=== PATIENT | male | born 1975 | race Caucasian/White ===

== ENCOUNTER 2018-03-25 21:07 | Emergency (ER) | payer OTHER ==
--- NOTE | 2018-03-25 21:54 | EDPHY ---
H & P Stated Complaint: TOOTHPICK STUCK IN THROAT/FROM [facility] [place] Time Seen by Provider: 03/25/18 21:54 HPI/ROS: HPI CHIEF COMPLAINT: Swallowed a toothpick. HISTORY OF PRESENT ILLNESS: This patient is a 42-year-old male, history of hypertension and thyroid disease, he presents emergency room after states he was drinking a bloody Maryam this evening the all of fell off the toothpick and then he swallowed a toothpick by accident. He states he can still feel it in his upper esophagus in the back of his throat. He is able to handle his secretions and swallow. He has some mild discomfort. He denies any wheezing or coughing. Past Medical History: Hypertension and thyroid disease Past Surgical History: No recent surgical history had ankle surgery years ago. Social History: Denies daily use drugs alcohol tobacco. Had alcohol this evening socially. Family History: Noncontributory ROS REVIEW OF SYSTEMS: A comprehensive 10 point review of systems is otherwise negative aside from elements mentioned in the history of present illness. Exam Constitutional appears well nontoxic no acute distress triage nursing summary reviewed, vital signs reviewed, awake/alert. Eyes normal conjunctivae and sclera, EOMI, PERRLA. HENT posterior pharynx unable to visualize, normal inspection, atraumatic, moist mucus membranes, no epistaxis, neck supple/ no meningismus, no raccoon eyes. Respiratory clear to auscultation bilaterally, normal breath sounds, no respiratory distress, no wheezing. Cardiovascular rate normal, regular rhythm, no murmur, no edema, distal pulses normal. Gastrointestinal soft, non-tender, no rebound, no guarding, normal bowel sounds, no distension, no pulsatile mass. Genitourinary no CVA tenderness. Musculoskeletal no midline vertebral tenderness, full range of motion, no calf swelling, no tenderness of extremities, no meningismus, good pulses, neurovascularly intact. Skin pink, warm, & dry, no rash, skin atraumatic. Neurologic awake, alert and oriented x 3, AAOx3, moves all 4 extremities equally, motor intact, sensory intact, CN II-XII intact, normal cerebellar, normal vision, normal speech. Psychiatric normal mood/affect. Heme/Lymph/Immune no lymphadenopathy. Differential Diagnosis: Foreign body ingestion, posterior pharynx scratch, soft usp perforation Medical Decision Making: Includes but is not limited to in a particular order rule out foreign body ingestion, will start with an x-ray soft tissue of his neck, x-ray grade 2 view of the chest additionally I will consult Gastroenterology. Re-evaluation: 2213: Spoke with Dr. Adam on-call for Gastroenterology. Recommends ENT to scope 1st prior to her doing evaluation with a GI scope. 2220: Spoke with Dr. Shady Meng. He will come and see and evaluate the patient. X-rays of the chest and soft tissue neck reviewed. No evidence of foreign body. Called to me by Dr. Conn. 2245: Dr. Shady Meng at bedside. Evaluating patient. Foreign body removal procedure: Dr. Shady Meng at bedside along with myself, patient was given Afrin sprays up both nares, additionally was given lidocaine p.o. With swish and spit and swish and swallow, we will able to use a fiberoptic nasopharyngeal scope and through the left Espinoza through the posterior pharynx were able to visualize the toothpick that was stuck in a vertically oriented fashion above the patient's vocal cords. With direct visualization, using the fiberoptic scope we were able to grab it with kills for sepsis. The toothpick was completely removed. Post toothpick removal I was able to scope the patient this see if there was any remaining foreign body or significant trauma to the posterior pharynx. There is no visualize remaining foreign body we appear to get the entire toothpick. Additionally there was some posterior pharynx trauma from where the toothpick was impaled into the posterior pharynx there was a slight area bleeding. The patient be placed on antacid medication, additionally [place] for pain, ibuprofen for pain. I did discuss strict return precautions with him. He understands return emergency room if he has worsening posterior pharynx pain when he swallows, additionally, fever, trouble breathing, trouble swallowing, or worsening symptoms. I do recommend he drinks cold fluids over the next 72 hr. Anti-inflammatory pain medicine ibuprofen, [place] for severe pain, Zantac for 2 weeks as prescribed. Additionally if he has any questions or concerns or worsening symptoms he may also follow up with Dr. Shady Meng However return precautions discussed with him. Source: Patient - Personal History Current Tetanus Diphtheria and Acellular Pertussis (TDAP): Yes - Medical/Surgical History Hx Asthma: No Hx Chronic Respiratory Disease: No Hx Diabetes: No Hx Cardiac Disease: No Hx Renal Disease: No Hx Cirrhosis: No Hx Alcoholism: No Hx HIV/AIDS: No Hx Splenectomy or Spleen Trauma: No Other PMH: HTN, HYPOTHYROID - Social History Smoking Status: Never smoked Constitutional: Initial Vital Signs Temperature (C) 37.1 C 03/25/18 21:36 Heart Rate 127 H 03/25/18 21:36 Respiratory Rate 16 03/25/18 21:36 Blood Pressure 150/93 H 03/25/18 21:36 O2 Sat (%) 92 03/25/18 21:36 O2 Delivery Mode Room Air Allergies/Adverse Reactions: No Known Allergies Allergy (Unverified 03/25/18 21:34) Home Medications: Medication Instructions Recorded Atenolol 03/25/18 Hydrocodone/APAP 5/325 [[place] 1 - 2 tab PO Q4H PRN #14 tab 03/25/18 5/325] Ibuprofen [Motrin (*)] 800 mg PO Q6-8PRN #10 tab 03/25/18 Levothyroxine 03/25/18 Ranitidine HCl 150 mg PO DAILY #14 tablet 03/25/18 amLODIPine BESYLATE 03/25/18 Medical Decision Making - Diagnostics Imaging Results: Imaging Impressions Chest X-Ray 03/25/18 21:58 Impression: 1. Negative for radiopaque foreign body. 2. See above report for additional findings. Soft Tissue Neck X-Ray 03/25/18 21:58 Impression: Cervical soft tissues negative for acute abnormality. Specifically, a radiopaque foreign body is not identified, however, wood can be difficult to detect radiographically. Results called and discussed with Be Conroy MD on 03/25/2018 at 22:29 Departure - Departure Disposition: Home, Routine, Self-Care Clinical Impression: Foreign body aspiration Qualifiers: Encounter type: initial encounter Qualified Code(s): T17.900A - Unspecified foreign body in respiratory tract, part unspecified causing asphyxiation, initial encounter Condition: Good Instructions: Foreign Body in Pharynx (ED), Foreign Body Ingestion (ED) Additional Instructions: 1. Return to the emergency room if you have worsening posterior pharynx pain. 2. Return if he develops trouble swallowing or trouble breathing. 3. Return if he develops fever. 4. If you have any further questions or concerns return emergency room. 5. Zantac, ibuprofen and [place] as prescribed. Viscous lidocaine as prescribed. Referrals: YAMIL CARRANZA [Other] - As per Instructions Shady Meng MD [Medical Doctor] - As per Instructions Prescriptions: Hydrocodone/APAP 5/325 [[place] 5/325] 1 - 2 tab PO Q4H PRN #14 tab PRN Reason: Pain, Moderate Ibuprofen [Motrin (*)] 800 mg PO Q6-8PRN #10 tab Ranitidine HCl 150 mg PO DAILY #14 tablet
[2018-03-25] MEDS ORDERED: OXYMETAZOLINE 30 ML NASAL SPRAY EACHNARE ONE (22:20)
[2018-03-25] MEDS ORDERED: LIDOCAINE 2% VISCOUS 15 ML UDCUP PO ONE ×2 (22:20→23:13)
[2018-03-25] MEDS ORDERED: LIDOCAINE 2% 5 ML SDV ONE (22:53)
[2018-03-25] MEDS ORDERED: HYDROCODONE/APAP 5/325 TAB PO ONE (23:03)
[2018-03-25] MEDS ORDERED: IBUPROFEN 800 MG TAB PO ONE (23:03)
[2018-03-25] MEDS ORDERED: RANITIDINE SYRUP 15 MG/1 ML UDSYR PO SCH (23:15)
[2018-03-25 23:56] VITALS: BP 145/88
--- NOTE | 2018-03-26 10:25 | EDV ---
[f rep st] EMERGENCY DEPARTMENT REPORT DATE OF SERVICE: 03/25/2018 HISTORY OF PRESENT ILLNESS: A 42-year-old male who earlier in the evening was having a cocktail. He thinks the toothpick that was in the cocktail came loose from the olive that it was on and as he darell nk the drink, he swallowed it. The patient states he can feel this in his throat. He has difficulty with swallowing and is having difficulty handling secretions. He describes a sharp pain with swallo w. He also feels his voice is more hoarse than usual. He says he is breathing comfortably and denie s difficulty breathing. PAST MEDICAL HISTORY: Hypertension and thyroid disease. PAST SURGICAL HISTORY: Ankle surgery. SOCIAL HISTORY: Social drinker. FAMILY HISTORY: Noncontributory. REVIEW OF SYSTEMS: Negative x10, but for that which was mentioned in the HPI. IMAGING: Soft tissue neck x-ray was observed and the radiology read was reviewed. I agree with the findings. No evidence of radiopaque foreign body. I have to go. PHYSICAL EXAMINATION: VITAL SIGNS: Blood pressure 150/93, heart rate 127, respiratory rate 16, satu ration is 92% on room air. Afebrile. GENERAL: Alert, interactive, obese in mild distress. HEENT: Head and face normocephalic, atraumatic with generally symmetric facial features. Ears: Bilateral pinnae and canals are nontender, nonerythematous. Eyes: EOMI. Nose: Normally formed and generally straight. Normal anterior anatomy. Oral cavity/oropharynx: Age-appropriate dentition. No oral mu cosal masses or lesions. No evidence of bleeding or ulceration in the posterior pharynx. NECK: Sup ple without palpable mass or adenopathy. No crepitus. After Afrin and lidocaine nasal spray was placed in bilateral nasal cavities, a flexible video endosc ope was passed through the right nares. After following this through the nasopharynx into the drying room operator ior pharynx and hypopharynx, there appeared a midline foreign body imbedded within the posterior phar yngeal tissues just above the glottis. The glottic airway appeared patent. There were no other mass es or lesions seen within the laryngoscopy. ASSESSMENT/PLAN: A 42-year-old male with laryngeal foreign body. This appears consistent with the t oothpick he was concerned that he swallowed. Given his history and findings, he was determined to be an appropriate candidate for endoscopic removal of the laryngeal foreign body. This was performed u rgently given the location of the toothpick precariously perched just above the glottis in a vertical fashion. Concern here obviously being for airway or bronchial foreign body. The risks of this were explained to the patient and he stated he understood and wished to go forward removal. DESCRIPTION OF PROCEDURE: The patient was given 2% viscous lidocaine and gargled and swallowed this. The flexible endoscope was passed through the patient's right nasal cavity and through to view the laryngeal foreign body. While the scope was held in place, a Sahu forceps was passed through the or al cavity. The foreign body appeared lodged vertically into the posterior pharyngeal wall. Once the Sahu forceps was visualized to be grasping the toothpick, the forceps was brought distally to dislo dge the toothpick of the soft tissue before it was elevated vertically and pulled out of the patient' s laryngeal airway. The posterior pharyngeal wall was visualized to have some mild bloody ooze, but no mark significant laceration. The glottis appeared normal and there was good vocal fold function and no evidence of trauma. The patient tolerated this procedure remarkably well given the circumstan payton and acuity. INTERVAL ASSESSMENT: Laryngeal foreign body removed with minimal laryngeal trauma. Given the appear ance of the posterior pharyngeal wall, he is suitable for discharge this evening. He understands to return immediately to the emergency room should he have difficulty swallowing, difficulty breathing, hemoptysis, hematemesis, fever, chest pain. I recommended he use Zantac 150 mg twice daily for 2 wee ks. Follow up with me in clinic should he continue to have throat pain beyond 10 days. /[id number]/MODL
== END 2018-03-25 23:50 | disposition home or self-care (01) ==
DX: T17.900A Unspecified foreign body in respiratory tract, part unspecified causing asphyxiation, initial encounter (principal); I10 Essential (primary) hypertension; X58.XXXA Exposure to other specified factors, initial encounter